=== PATIENT | male | born 1960 | race Caucasian/White ===

== ENCOUNTER 2019-03-28 14:43 | Observation (INO) | payer MEDICARE, SELFPAY ==
[2019-03-28 15:36] LABS: Bilirubin Negative (Negative); Blood, Urine 1+ (Negative); Clarity Clear (Clear); Glucose, Urine (Dipstick) Normal (Negative); Leukocyte Negative Leu/uL (Negative); Nitrite Negative (Negative); Protein, Urine (Dipstick) 50 mg/dL (Neg-Trace); Urobilinogen Normal mg/dL (Less than 2)
[2019-03-28 15:54] LABS: Bacteria/HPF None Seen HPF (None Seen); Calcium Oxalate Crystals 1+ HPF (None Seen); RBC/HPF 0-3 HPF (0-3); Squamous Epithelial 0-3 HPF (0-3); WBC/HPF 0-3 HPF (0-3)
[2019-03-28] MEDS ORDERED: Lorazepam 2 MG/ML VIAL ONE ×3 (16:19→19:41)
[2019-03-28 16:53] LABS: #Basophils 0.1 thou/uL (0.0-0.2); #Monocytes 1.3 thou/uL (0.11-0.59); #Neutrophils 9.6 thou/uL (1.40-6.50); %Basophils 0.4 % (0.0-1.0); %Eosinophils 0.1 % (0.0-10.0); %Lymphocytes 15.4 % (21.0-51.0); %Monocytes 10.2 % (0.0-10.0); %Neutrophils 73.9 % (42.0-75.0); Hemoglobin 14.6 g/dL (14.0-18.0); Mean Corpuscular Hemoglobin 30.5 pg (27.0-31.0); Mean Corpuscular Volume 92.5 fL (78.0-98.0); Mean Platelet Volume 8.1 fL (7.4-10.4); Platelet Count 153 thou/uL (130-400); RBC Distribution Width 12.3 % (11.5-14.5); Red Blood Cell (RBC) Count 4.79 mill/uL (4.70-6.10)
--- NOTE | 2019-03-28 17:11 | RAD ---
AP CHEST: Date: 03/28/19 HISTORY: Chest pain. FINDINGS: Lung murphy are clear. Heart and mediastinum appear normal. Vasculature normal. There is deformity of the right clavicle from old healed fracture. IMPRESSION: No acute lung process. POS: [facility]
[2019-03-28 17:24] LABS: ALT (SGPT) 16 U/L (8-55); AST (SGOT) 73 U/L (5-34); Albumin 4.5 g/dL (3.5-5.0); Alkaline Phosphatase 88 U/L (40-150); Anion Gap 20 mmol/L (10-20); BUN (Urea Nitrogen) 59 mg/dL (8.4-25.7); Bilirubin, Total 1.5 mg/dL (0.2-1.2); CK (CPK) 1901 U/L (30-200); Calc. Creatinine Clearance 0 mL/min (70-130); Calcium 9.4 mg/dL (7.8-10.44); Carbon Dioxide 15 mmol/L (22-29); Chloride 104 mmol/L (98-107); Estimated GFR-MDRD 40; Globulin 2.8 g/dL (2.4-3.5); Glucose 74 mg/dL (70-105); Lipase 6 U/L (8-78); Potassium 3.7 mmol/L (3.5-5.1); Protein, Total 7.3 g/dL (6.0-8.3); Sodium 135 mmol/L (136-145)
[2019-03-28] MEDS ORDERED: Acetaminophen 325 MG TAB PO PRN (19:09)
[2019-03-28] MEDS ORDERED: Bisacodyl 5 MG TAB PO PRN (19:09)
[2019-03-28] MEDS ORDERED: Ondansetron PF 4 MG/2 ML Vial IVP PRN (19:09)
[2019-03-28] MEDS ORDERED: Benzonatate 100 MG CAP PO PRN (19:09)
[2019-03-28] MEDS ORDERED: Senokot S 8.6-50 MG TAB PO PRN (19:09)
[2019-03-28] MEDS ORDERED: cloNIDine 0.1 MG TAB PO PRN (19:09)
[2019-03-28] MEDS ORDERED: Sodium Chloride 0.65% Nasal 44 ML BOT EA NARE PRN (19:09)
--- NOTE | 2019-03-28 20:34 | HP ---
PRIMARY CARE PHYSICIAN: Unknown. CHIEF COMPLAINT: Chest pain. HISTORY OF PRESENT ILLNESS: Mr. Avitia is a 58-year-old male who was brought in by the police to the EMS. Reportedly, he was evicted from a hotel and manager interventional were called. He complained of chest pain to the manager interventional, so EMS was called and he was brought into the emergency room. History is mainly obtained by the record review. The patient is somnolent and altered at this time and is not able to provide any history. Electronic medical records have been reviewed. According to the reports, the patient complained of some burning urination and chest pain. He has known history of drug abuse and reported methamphetamine use for the last 3 days to the ER physician. Upon presentation, he was hemodynamically stable with a blood pressure of 143/107, pulse of 101, respirations 18, temperature 97.8, and saturations 99% on room air. He denied any history of blood clots to the ER physician. He reported taking methamphetamine yesterday for the last 3 days, but denied any other drug of abuse or alcohol recently. His chest pain resolved while in the emergency room. EKG done in the ER showed possible left atrial enlargement. Otherwise, no acute ST or T-wave changes. Chest x-ray did not show any acute abnormalities either. His further workup revealed mild leukocytosis with WBCs of 13.0 with no left shift. He was found to have elevated BUN and creatinine with BUN of 59, creatinine 1.74 with no baseline available. He was also found to have creatine kinase of 1901. Troponin was less than 0.010. His urinalysis showed calcium oxalate crystals. In the emergency room, he received Ativan, I believe, a total of 6 mg for possible agitation, though I am not sure; and at the time of my examination, he is difficult to wake up. He has defecated on himself and sleeping to his side. He is not in any acute distress and is able to maintain his airways. PAST MEDICAL HISTORY: Depression based on his medications. PAST SURGICAL HISTORY: History of inguinal or uncertain hernia repair, unclear at this time. PAST PSYCHIATRIC HISTORY: Depression. SOCIAL HISTORY: Methamphetamine/amphetamine use and cigarette smoking half pack per day. Unsure if he drinks. He told the ER physician that he drinks socially every week. FAMILY HISTORY: Unable to obtain due to the patient's noncooperation and somnolence. REVIEW OF SYSTEMS: Unable to obtain as the patient would not wake up for my examination. LABORATORY DATA: CBC shows WBC 13.0. Serum chemistries; sodium 135, bicarb 15, BUN 59, creatinine 1.74, total bilirubin 1.5, AST 73. Creatine kinase 1901. Troponin less than 0.010. Urinalysis showed ketones, +1 blood without any rbc's, and calcium oxalate crystals. Chest x-ray by my review shows no cardiomegaly. There is no pleural effusion, edema, or infiltrate. A 12-lead EKG by my review shows sinus tachycardia at 96 beats per minute with QTc of 467 milliseconds. PHYSICAL EXAMINATION: VITAL SIGNS: Most recent blood pressure 129/92, pulse of 92, respirations 22, temperature 98.2, saturating 99% on room air. GENERAL: He is sleeping soundly lying on his left side. He is lying in the bed naked and he has defecated on himself. He is difficult to wake up. HEENT: Head appears normocephalic, atraumatic. Pupils are equal and reactive to light. Mucous membrane appears dry. NECK: Supple without any lymphadenopathy, JVD, or bruit. CHEST: Clear to auscultation without any wheezing, rales, or rhonchi. HEART: Rhythm is regular without any murmurs, rubs, or gallops. ABDOMEN: Soft, nondistended. EXTREMITIES: No edema or infiltrate. BACK: No tenderness or obvious deformities. NEUROLOGICAL: Limited. He withdraws to pain. SKIN: Free of any rashes or bruises. Feels warm and dry to touch. PSYCHIATRIC: Could not be completed because the patient is very somnolent. IMPRESSION AND PLAN: 1. Rhabdomyolysis. The patient's symptoms are most likely related to methamphetamine use in the last 3 days including altered mental status compounded by the Ativan he received in the emergency room. We will start him on generous IV fluids and recheck CPK in the morning. Urine drug screen has also been ordered. 2. Chest pain. EKG and cardiac enzymes are unremarkable. I believe that his symptoms are once again due to methamphetamine abuse. We will continue to trend serial cardiac enzymes for now. 3. Acute renal insufficiency. Baseline is unknown. Suspect dehydration due to poor oral intake. Start him on IV fluids and avoid any nephrotoxic medications. We will recheck in the morning. 4. Drug abuse. We will check a urine drug screen and also check an alcohol level. 5. Hyperbilirubinemia. His bilirubin is 1.5 with mildly elevated AST of 73. We will recheck in the morning. Suspect either fatty liver or alcoholic liver. 6. Leukocytosis, likely reactive. No evidence to suggest infection at this time. 7. Altered mental status, likely due to drug and methamphetamine. He is able to maintain his airways and is hemodynamically stable. We will monitor him on telemetry. DISPOSITION: Mr. Avitia is currently being admitted to the hospital with rhabdomyolysis and likely chest pain secondary to that, though the history is incomplete because of the patient's noncooperation. Plan as above. Currently, observation status. Job ID: [id number]
[2019-03-28 20:36] LABS: Amphetamine Detected (NotDetected); Barbiturates Screen Not Detected (NotDetected); Benzodiazepine Screen Detected (NotDetected); Cocaine Metabolite Screen Detected (NotDetected); Medtox Control Line Valid? VALID (VALID); Medtox Reader # READER 1; Methadone Not Detected (NotDetected); Methamphetamine Detected (NotDetected); Opiate Screen Detected (NotDetected); Oxycodone Screen Not Detected (NotDetected); Phencyclidine (PCP) Not Detected (NotDetected); THC/Cannabinoid Screen Not Detected (NotDetected); Tricyclic Screen Not Detected (NotDetected)
[2019-03-28] MEDS ORDERED: Famotidine 20 MG TAB PO SCH (21:00)
[2019-03-28 23:19] VITALS: BMI 21.4
[2019-03-29] MEDS: Sodium Chloride 0.9% 1,000 ML IV SCH ×4 (00:57→19:55)
[2019-03-29 06:03] LABS: Anion Gap 10 mmol/L (10-20); BUN (Urea Nitrogen) 37 mg/dL (8.4-25.7); CK (CPK) 1077 U/L (30-200); Calc. Creatinine Clearance 73 mL/min (70-130); Calcium 8.9 mg/dL (7.8-10.44); Carbon Dioxide 21 mmol/L (22-29); Chloride 109 mmol/L (98-107); Estimated GFR-MDRD 72; Glucose 158 mg/dL (70-105); Potassium 3.3 mmol/L (3.5-5.1); Sodium 137 mmol/L (136-145)
[2019-03-29] MEDS: Famotidine 20 MG TAB PO SCH (07:38)
[2019-03-29] MEDS: Enoxaparin Sodium 40 MG/0.4 ML SYRINGE SC SCH (07:38)
[2019-03-29 09:18] LABS: #Lymphocytes 1.6 thou/uL (1.20-3.40); #Monocytes 0.5 thou/uL (0.11-0.59); #Neutrophils 3.5 thou/uL (1.40-6.50); %Basophils 0.6 % (0.0-1.0); %Eosinophils 0.6 % (0.0-10.0); %Lymphocytes 27.8 % (21.0-51.0); %Monocytes 8.2 % (0.0-10.0); %Neutrophils 62.7 % (42.0-75.0); Hemoglobin 13.9 g/dL (14.0-18.0); Mean Corpuscular HGB CONC 32.9 g/dL (32.0-36.0); Mean Corpuscular Hemoglobin 30.5 pg (27.0-31.0); Mean Corpuscular Volume 92.5 fL (78.0-98.0); Mean Platelet Volume 7.9 fL (7.4-10.4); Platelet Count 140 thou/uL (130-400); RBC Distribution Width 12.3 % (11.5-14.5); Red Blood Cell (RBC) Count 4.55 mill/uL (4.70-6.10); White Blood Cell (WBC) Count 5.6 thou/uL (4.8-10.8)
[2019-03-29 09:34] LABS: Lactic Acid 0.9 mmol/L (0.5-2.2)
[2019-03-29 09:40] LABS: ALT (SGPT) 13 U/L (8-55); AST (SGOT) 58 U/L (5-34); Alkaline Phosphatase 77 U/L (40-150); Bilirubin, Direct 0.7 mg/dL (0.1-0.3); Bilirubin, Total 1.8 mg/dL (0.2-1.2); Lipase 49 U/L (8-78); Protein, Total 6.4 g/dL (6.0-8.3)
--- NOTE | 2019-03-29 12:07 | PDOC.PN ---
- Subjective Encounter Start Date: 03/29/19 Encounter Start Time: 12:04 Subjective: Patient with difficulty urinating, states he has to strain and -: only urinating small amounts. When sleeping he has had incontinence -: Denies any hematuria and reports dysuria. Complaining of loose stools and states he has had issues with ulcerative colitis in the past requiring surgery. States his intestines "pushed out", ?rectal prolapse. Difficulty obtaining history from him. He complains of pain in his joints and mouth. Asking for pain medications. - Objective Vital Signs & Weight: Vital Signs (12 hours) Temp Pulse Resp BP Pulse Ox 03/29/19 11:23 98.8 F 83 16 115/75 97 03/29/19 07:34 98.4 F 72 16 119/75 96 03/29/19 04:00 97.7 F 82 20 124/78 96 03/29/19 00:53 97.3 F L 79 18 161/77 H 97 Weight Weight 149 lb 14.629 oz I&O: 03/28/19 03/29/19 03/30/19 06:59 06:59 06:59 Intake Total 1750 Balance 1750 Result Diagrams: 03/29/19 09:11 03/29/19 05:01 Phys Exam - Physical Examination Constitutional: NAD Thin, fidgeting, no distress HEENT: PERRLA poor dentition Neck: supple, full ROM Respiratory: clear to auscultation bilateral Cardiovascular: RRR suprapubic tenderness, slight distention, no guarding/rigidity Musculoskeletal: no edema Neurological: moves all 4 limbs Psychiatric: normal affect, A&O x 3 Deviation from normal: diffuse skin lesions/excoriations Dx/Plan (1) KAMILAH (acute kidney injury) Code(s): N17.9 - ACUTE KIDNEY FAILURE, UNSPECIFIED Status: Acute (2) Urinary retention Code(s): R33.9 - RETENTION OF URINE, UNSPECIFIED Status: Acute (3) Elevated LFTs Code(s): R94.5 - ABNORMAL RESULTS OF LIVER FUNCTION STUDIES Status: Acute (4) Drug abuse Code(s): F19.10 - OTHER PSYCHOACTIVE SUBSTANCE ABUSE, UNCOMPLICATED Status: Chronic - Plan cont current plan of care Postvoid bladder scan: >999mLs, will place hedrick and send UA/Cx. -: Bilateral renal US to assess for hydronephrosis. -: Continue IVF. -: Gallbladder US given LFTs trending up including bilirubin. ADDENDUM: Abdo US: unremarkable, no gallstones or biliary obstruction. Liver unremarkable. Bladder scan showed distended bladder, no hydronephrosis, kidneys normal. Prevoid bladder scan 3,400 post void bladder scan 1,400. Hedrick placed with 1,500 mLs drained. Possibly associated with drug use. Will monitor overnight.
[2019-03-29 14:19] LABS: Bacteria/HPF 1+ HPF (None Seen); Bilirubin Negative (Negative); Blood, Urine 1+ (Negative); Clarity Clear (Clear); Glucose, Urine (Dipstick) 100 mg/dL (Negative); Leukocyte Negative Leu/uL (Negative); Mucous/LPF 1+ LPF (<2+); Nitrite Negative (Negative); Protein, Urine (Dipstick) 30 mg/dL (Neg-Trace); Squamous Epithelial None Seen HPF (0-3); Urobilinogen Normal mg/dL (Less than 2); WBC/HPF 0-3 HPF (0-3)
[2019-03-29 14:30] LABS: Sperm/HPF 1+ HPF (None Seen)
[2019-03-29 14:31] LABS: Urine Culture Reflex No No
--- NOTE | 2019-03-29 16:22 | ULT ---
COMPLETE ABDOMINAL ULTRASOUND ULTRASOUND OF URINARY BLADDER: Date: 03/29/19 HISTORY: Abdominal pain. Elevated bilirubin. Urinary retention. TECHNIQUE: 1. Multiplanar Polanco scale and color Doppler images were obtained in a complete abdominal ultrasound. 2. An ultrasound of the urinary bladder was performed to evaluate urine volume. FINDINGS: The liver is normal in echogenicity without focal lesions or intrahepatic ductal dilatation. The gall bladder is contracted, without shadowing stones or gallbladder wall thickening. The common bile duct is normal measuring 5.0 mm. The visualized portions of the pancreas are unremarkable. The aorta and inferior vena cava are normal in caliber. The spleen is normal in echogenicity without focal lesions and measures 11.7 cm in lengt h. Both kidneys are normal in echogenicity without hydronephrosis or calculi, and measure 10.0 and 11.2 cm in length on the right and left, respectively. Limited visualization of the urinary bladder shows no focal abnormality. Pre-void bladder volume is 3 ,284 mL. Post-void bladder volume is 1,467 mL. IMPRESSION: Large, overdistended urinary bladder, with large post-void residual. POS: [facility]
[2019-03-30] MEDS: Sodium Chloride 0.9% 1,000 ML IV SCH ×2 (01:32→09:27)
[2019-03-30 05:39] LABS: #Eosinphils 0.1 thou/uL (0.0-0.7); #Lymphocytes 1.8 thou/uL (1.20-3.40); #Monocytes 0.5 thou/uL (0.11-0.59); #Neutrophils 2.4 thou/uL (1.40-6.50); %Basophils 0.5 % (0.0-1.0); %Eosinophils 1.9 % (0.0-10.0); %Lymphocytes 37.8 % (21.0-51.0); %Monocytes 10.9 % (0.0-10.0); Mean Corpuscular HGB CONC 33.1 g/dL (32.0-36.0); Mean Corpuscular Hemoglobin 30.8 pg (27.0-31.0); Mean Corpuscular Volume 93.1 fL (78.0-98.0); Mean Platelet Volume 8.6 fL (7.4-10.4); Platelet Count 119 thou/uL (130-400); Platelet Morphology Comment Appears Decreased; RBC Distribution Width 12.4 % (11.5-14.5); RBC Morphology Normal; Red Blood Cell (RBC) Count 4.23 mill/uL (4.70-6.10); White Blood Cell (WBC) Count 4.8 thou/uL (4.8-10.8)
[2019-03-30 05:47] LABS: ALT (SGPT) 12 U/L (8-55); AST (SGOT) 40 U/L (5-34); Albumin 3.6 g/dL (3.5-5.0); Alkaline Phosphatase 68 U/L (40-150); Anion Gap 11 mmol/L (10-20); BUN (Urea Nitrogen) 19 mg/dL (8.4-25.7); Bilirubin, Total 0.9 mg/dL (0.2-1.2); CK (CPK) 396 U/L (30-200); Calc. Creatinine Clearance 98 mL/min (70-130); Calcium 8.7 mg/dL (7.8-10.44); Carbon Dioxide 21 mmol/L (22-29); Chloride 111 mmol/L (98-107); Estimated GFR-MDRD Greater than 90; Globulin 2.3 g/dL (2.4-3.5); Glucose 102 mg/dL (70-105); Lipase 54 U/L (8-78); Potassium 3.2 mmol/L (3.5-5.1); Protein, Total 5.9 g/dL (6.0-8.3); Sodium 140 mmol/L (136-145)
[2019-03-30] MEDS ORDERED: Cepastat Lozenges 1 LOZ PO PRN (07:22)
[2019-03-30] MEDS ORDERED: Loratadine 10 MG TAB PO PRN (07:22)
[2019-03-30] MEDS ORDERED: Temazepam 15 MG CAP PO PRN (07:22)
[2019-03-30] MEDS ORDERED: Ondansetron ODT 4 MG TAB PO PRN (07:22)
[2019-03-30] MEDS ORDERED: Calcium Carbonate 500 MG ChewTAB PO PRN (07:22)
[2019-03-30] MEDS ORDERED: HYDROcodone/Acetaminophen 5/325 mg Tablet PO PRN (07:22)
[2019-03-30] MEDS ORDERED: hydrALAZINE 20 MG/ML VIAL SLOW IVP PRN (07:22)
[2019-03-30] MEDS ORDERED: Loperamide HCl 2 MG CAP PO PRN (07:22)
[2019-03-30] MEDS ORDERED: Potassium Chloride 20 MEQ TAB PO SCH (07:30)
[2019-03-30 07:35] VITALS: BP 127/81; TEMP 98.8
[2019-03-30] MEDS: Famotidine 20 MG TAB PO SCH (08:02)
[2019-03-30] MEDS: Enoxaparin Sodium 40 MG/0.4 ML SYRINGE SC SCH (08:02)
--- NOTE | 2019-03-30 11:20 | DIS ---
DATE OF ADMISSION: 03/28/2019 DATE OF DISCHARGE: 03/30/2019 PRIMARY CARE PHYSICIAN: [facility] Call admission. DISCHARGE DISPOSITION: Home. PRIMARY DISCHARGE DIAGNOSES: 1. Acute kidney injury, improved. 2. Abnormal LFT due to rhabdomyolysis, improving. 3. Rhabdomyolysis, improved. 4. Hypokalemia, corrected. 5. Acute urinary retention. SECONDARY DISCHARGE DIAGNOSES: 1. Polysubstance abuse. 2. Anxiety and depression. PRIMARY PROCEDURE/OPERATIONS: None. RADIOLOGICAL INVESTIGATION: Chest x-ray normal. Abdomen ultrasound showed significant bladder distention. SIGNIFICANT LABORATORY DATA: Hemoglobin 13.0, platelet 119, WBC 4.8. Sodium 140, potassium 3.2, BUN 19, creatinine 0.78, calcium 8.7. AST 40, ALT 12, alkaline phosphatase 68, CK 396, albumin 3.6, and lipase 54. Urinalysis unremarkable. Urine drug screen positive for amphetamine, methamphetamine, benzos, cocaine, and cannabinoid as well as opiate. Alcohol level less than 10. DISCHARGE MEDICATIONS: The patient will continue his Lexapro 10 mg p.o. daily and trazodone 100 mg p.o. daily. CONTRAINDICATION: None. CODE STATUS: Full code. INPATIENT PULP BLEACHER: None. ALLERGIES: NO KNOWN DRUG ALLERGIES. DISCHARGE PLAN: Posthospital, the patient will follow up with primary care physician in 1 week. HOSPITAL COURSE: A 58-year-old male with above-mentioned medical problem, who was admitted by Dr. Margarette Hernandez. Please see her H and P for further details. This patient had polysubstance abuse including cocaine, methamphetamine, and marijuana, and he had acute kidney injury associated with rhabdomyolysis. He was dehydrated while in hospital. He had abnormal LFT due to rhabdomyolysis, and he had abnormal potassium while in hospital. He was given IV fluid and his renal function improved to normal. His electrolyte was replaced while in hospital. We have provided the patient counseling to avoid polysubstance abuse. The patient expressed understanding. While in hospital, he had acute urinary retention, required Tanner catheter. On the day of discharge, I removed Tanner catheter and we will see if he is able to void spontaneously. If he does not able to void spontaneously, then we will add Flomax and the patient does not like to leave Tanner catheter in. Based on clinical course, we will decide discharge plan later on today. I have seen the patient at bedside today. PHYSICAL EXAMINATION: VITAL SIGNS: Currently, temperature 98.8, pulse 75, respiratory rate 16, saturation 96% on room air, and blood pressure 127/81. Weight 149 pounds. GENERAL: The patient is currently alert and awake, in no obvious acute distress. HEENT: Head; normocephalic and atraumatic. Eyes; pupils round and reactive to light. Extraocular muscle intact. ENT, oropharynx within normal limits. LUNGS: Clear to auscultation without any rhonchi or rales. CARDIAC: S1 and S2, regular without any murmur. ABDOMEN: Soft and benign. EXTREMITIES: No edema. NEUROLOGIC: Nonfocal examination. Overall, the patient is medically stable for discharge today if he is able to void by himself. Job ID: [id number]
--- NOTE | 2019-03-30 13:25 | EKG ---
Test Reason : Blood Pressure : / mmHG Vent. Rate : 096 BPM Atrial Rate : 096 BPM P-R Int : 126 ms QRS Dur : 084 ms QT Int : 370 ms P-R-T Axes : 073 033 033 degrees QTc Int : 467 ms Normal sinus rhythm Possible Left atrial enlargement Borderline ECG No ST elevation/PR Confirmed by NANCY Moise, RHONDA ([id number]), online content editor MAREN MCCORD ([id number]) on 03/30/2019 1:24:49 PM Referred By: Confirmed By:RHONDA CRUZ M.D.
== END 2019-03-30 12:51 | disposition left against medical advice (07) ==
LOC: ERS 14:43 → T4-A 20:07
PROVIDERS: ADMIT Internal Medicine; ATTEND Internal Medicine
DX: M62.82 Rhabdomyolysis (principal); N17.9 Acute kidney failure, unspecified; R33.9 Retention of urine, unspecified; R07.9 Chest pain, unspecified; E87.6 Hypokalemia; F41.8 Other specified anxiety disorders; F32.9 Major depressive disorder, single episode, unspecified; F17.210 Nicotine dependence, cigarettes, uncomplicated; E80.6 Other disorders of bilirubin metabolism; D72.829 Elevated white blood cell count, unspecified
CPT/HCPCS: 71045; 76700; 76856; 80048; 80053 ×2; 80076; 80306; 80307; 81001; 82550 ×3; 83605; 83690 ×3; 84484 ×3; 85025 ×3; 93005; 96361 ×3; 96372; 96374; 96376; 97139 ×2; 99285; G0378 ×2; 36415; 81003; 81015; J1650; J2060